=== PATIENT | male | born 1975 | race Caucasian/White ===

== ENCOUNTER 2020-12-10 10:07 | Emergency (ER) | payer BC, SELFPAY ==
--- NOTE | 2020-12-10 10:21 | ED.URI ---
HPI - URI/Sore Throat General Chief Complaint: Upper Respiratory Infection Stated Complaint: upper respiratory infection Time Seen by Provider: 12/10/20 10:20 Source: patient Mode of arrival: ambulatory Limitations: no limitations History of Present Illness HPI Narrative: Sage Sigala is a 45 yo male with a PMH of cardiomyopathy, hypertension, high cholesterol, seizure disorder, comes to [facility] with concerns about having Covid. He has vague symptoms such as congestion nausea fatigue just not feeling well x5 days His son was tested positive for Covid and his who is a nurse and who is vaccinated is taking care of him he has been living in a separate apartment with his daughter. He works for [employer] and has been complaining of fatigue for period of time Related Data Home Medications Medication Instructions Recorded Confirmed carbamazepine 200 mg PO BID 12/10/20 12/10/20 carvedilol 25 mg PO DAILY 12/10/20 12/10/20 simvastatin 40 mg PO BID 12/10/20 12/10/20 Allergies Allergy/AdvReac Type Severity Reaction Status Date / Time No Known Allergies Allergy Unverified 12/10/20 10:20 Review of Systems Review of Systems: Narrative: CONSTITUTIONAL: Denies fever, chills, sweats. EYES: Denies visual changes, redness, discharge. ENT: Denies rhinorrhea, has congestion, no sore throat, otalgia. CARDIOVASCULAR: Denies chest pain, palpitations, edema. RESPIRATORY: Denies dyspnea, wheezing, mild cough GASTROINTESTINAL: Denies abdominal pain, has nausea, no vomiting, has diarrhea. GENITOURINARY: Denies dysuria, hematuria, abnormal discharge SKIN: Denies rash or itching. NEUROLOGIC: Denies numbness, or focal weakness. PSYCHIATRIC: Denies anxiety or depression. [facility] Past Medical History Medical History (Updated 12/10/20 @ 10:49 by Leslee Pedraza CNP) Cardiomyopathy High blood pressure High cholesterol Seizure Family History Family History Other Fatigue Social History Social History Smoking status: Never smoker Alcohol intake: current Gender identity (if verbalized by the patient): Male Comments At time of signature, I agree with nursing past medical, surgical, social and family history. There is no relevant family history pertinent to the presenting complaint. Exam Narrative: Exam Narrative: GENERAL: This is a well-nourished, well-developed patient, in mild distress. HEAD: normocephalic, atraumatic. EYES: Sclera clear/white. Vision is grossly intact. EARS: External ears normal, . Hearing grossly intact. NOSE: External nose normal with nasal discharge, nares with redness, no rhinorrhea. THROAT: Mucous membranes moist, posterior pharynx erythema NECK: Neck supple, CARDIOVASCULAR: Regular rate and rhythm without murmurs, gallops, or rubs. RESPIRATORY: Clear to auscultation. Breath sounds equal bilaterally. No wheezes, rales, or rhonchi. GASTROINTESTINAL: Abdomen soft, SKIN: warm, intact with no suspicious lesions or rash, good texture and turgor. NEURO: awake, alert, and oriented to person, place and time. There were no obvious focal neurologic abnormalities. Steady gait EXTREMITIES: Normal range of motion. BACK: Nontender without deformity Course Course Emergency Course: Patient comes to express care for complaints of upper respiratory symptoms and history of Covid and household Covid test positive; started on codeine cough syrup given prescription for dexamethasone and albuterol inhaler if develops respiratory symptoms, encouraged to take Zyrtec and Mucinex Vital Signs Vital signs: Vital Signs Temperature 99 F 12/10/20 10:27 Pulse Rate 68 12/10/20 10:27 Respiratory Rate 12/10/20 10:27 Blood Pressure 126/76 12/10/20 10:27 Pulse Oximetry 98 12/10/20 10:27 Temperature 99 F 12/10/20 10:27 Pulse Rate 68 12/10/20 10:27 Respiratory Rate 20 12/10/20 10:27
[2020-12-10 10:27] VITALS: BP 126/76; PULSE 68; RESP 20; TEMP 37.2; O2SAT 98
== END 2020-12-10 11:04 | disposition home or self-care (01) ==
PROVIDERS: Emergency Provider Nurse Practitioner
DX: U07.1 COVID-19 (principal); I42.9 Cardiomyopathy, unspecified; I10 Essential (primary) hypertension; E78.00 Pure hypercholesterolemia, unspecified; G47.30 Sleep apnea, unspecified
CPT/HCPCS: 87426; 99213; C9803; G0463

== ENCOUNTER 2020-12-28 10:22 | Emergency (ER) | payer BC, SELFPAY ==
[2020-12-28 10:38] VITALS: BP 129/91; PULSE 112; RESP 20; TEMP 36.8; O2SAT 100
--- NOTE | 2020-12-28 10:47 | ED.URI ---
HPI - URI/Sore Throat General Chief Complaint: Upper Respiratory Infection Stated Complaint: upper respiratory infection Time Seen by Provider: 12/28/20 10:40 Source: patient and RN notes reviewed Mode of arrival: ambulatory Limitations: no limitations History of Present Illness HPI Narrative: 45-year-old male presents with concern for cough, nasal congestion. Reports he was diagnosed with Covid 2-1/2 weeks ago. Reports original Covid symptoms did not include nasal congestion, cough. He reports cough, mild nasal congestion, rhinorrhea. Reports has been taking Sudafed with some relief of nasal congestion. Denies any other medications for his symptoms. He denies fever, shortness of breath, body aches, chills, sweats. MD elicited complaint: rhinorrhea Related Data Home Medications Medication Instructions Recorded Confirmed carbamazepine 200 mg PO BID 12/10/20 12/28/20 carvedilol 25 mg PO DAILY 12/10/20 12/28/20 simvastatin 40 mg PO BID 12/10/20 12/28/20 Allergies Allergy/AdvReac Type Severity Reaction Status Date / Time No Known Allergies Allergy Verified 12/28/20 10:34 Review of Systems Review of Systems: Narrative: CONSTITUTIONAL: Denies malaise, chills, sweats, or fever. EYES: Denies visual changes, redness, or discharge. ENT: Reports rhinorrhea, congestion. Denies sinus pain, otalgia and sore throat. CARDIOVASCULAR: Denies chest pain, palpitations, or edema. RESPIRATORY: Reports cough. Denies dyspnea. GASTROINTESTINAL: Denies abdominal pain, nausea, vomiting, diarrhea SKIN: Denies rash or itching. MUSCULOSKELETAL: Denies myalgia. NEUROLOGIC: Denies headache. All systems reviewed & are unremarkable except as noted in HPI and below PMFSH Past Medical History Medical History (Updated 12/28/20 @ 10:49 by Ml Gambino NP) Cardiomyopathy High blood pressure High cholesterol Seizure Family History Family History Other Fatigue Social History Social History Smoking status: Never smoker Alcohol intake: current Gender identity (if verbalized by the patient): Male Comments At time of signature, agree with nursing past medical, surgical, social and family history. There is no relevant family history pertinent to the presenting complaint Exam Narrative: Exam Narrative: GENERAL: Well-appearing, well-nourished, and in no acute distress. HEAD: Normocephalic EYES: PERRLA, conjunctivae clear ENT: Nares clear, turbinates erythematous, clear discharge, no sinus tenderness. Mucous membranes moist. TM pearly aldridge with dull light reflex bilaterally; no tragal tenderness. Oropharynx not erythematous without lesions. Tonsils not enlarged and without exudate, no drooling, no hoarseness, no trismus, uvula midline. NECK: Supple. No lymphadenopathy CHEST: Clear to auscultation, breath sounds equal. No wheezing, rhonchi, rales, or stridor. No respiratory distress, speaks in full sentences. Cough noted HEART: Regular rate and rhythm. No murmur heard. SKIN: Warm, dry, no rash. NEURO: Alert and oriented x3. PSYCH: Normal mood and affect Course Course Emergency Course: Patient is aware of diagnosis, understands and agrees to treatment plan. Anticipatory guidance given. Patient agrees to follow-up as directed and is aware of reasons to seek care at the emergency department. Portions of this record may have been created with voice recognition software Vital Signs Vital signs: Vital Signs Temperature 98.3 F 12/28/20 10:38 Pulse Rate 112 H 12/28/20 10:38 Respiratory Rate 12/28/20 10:38 Blood Pressure 129/91 H 12/28/20 10:38 Pulse Oximetry 100 12/28/20 10:38 Temperature 98.3 F 12/28/20 10:38 Pulse Rate 112 H 12/28/20 10:38 Respiratory Rate 20 12/28/20 10:38 Blood Pressure 129/91 H 12/28/20 10:38 Pulse Oximetry 100 12/28/20 10:38 Reviewed. MDM - URI/Sore Throat MDM Na
== END 2020-12-28 10:58 | disposition home or self-care (01) ==
PROVIDERS: Emergency Provider Nurse Practitioner
DX: J32.9 Chronic sinusitis, unspecified (principal); J20.9 Acute bronchitis, unspecified; E78.00 Pure hypercholesterolemia, unspecified; I42.9 Cardiomyopathy, unspecified; I10 Essential (primary) hypertension; G40.909 Epilepsy, unspecified, not intractable, without status epilepticus
CPT/HCPCS: 99213; G0463

== ENCOUNTER 2021-07-12 14:25 | Outpatient (CLI) | payer OTHER, SELFPAY ==
[2021-07-12 18:48] LABS: Free T4 Free Thyroxine 0.73 ng/mL (0.78-2.19)
== END 2021-07-12 14:26 | disposition home or self-care (01) ==
PROVIDERS: Visit Provider Internal Medicine Pulmonary Disease
DX: Z76.89 Persons encountering health services in other specified circumstances (principal)
CPT/HCPCS: 36415; 84439; 84443

== ENCOUNTER 2021-08-11 07:46 | Outpatient (CLI) | payer OTHER, SELFPAY ==
--- NOTE | 2021-08-24 13:08 | WPDSLEEPSTUD ---
Sleep Study Date of Study: 08/11/21 <Deanna Cade DO - Last Filed: 08/24/21 13:41> Ordering Provider: Aayush Uribe MD <Deanna Cade DO - Last Filed: 08/24/21 13:41> Interpreting Physician: Deanna Cade DO <Deanna Cade DO - Last Filed: 08/24/21 13:41> Sleep Study Type: Polysomnogram <Deanna Cade DO - Last Filed: 08/24/21 13:41> Height: 1.83 m <Deanna Cade DO - Last Filed: 08/24/21 13:41> Weight: 95.254 kg <Deanna Cade DO - Last Filed: 08/24/21 13:41> Body Mass Index: 28.5 <Deanna Cade DO - Last Filed: 08/24/21 13:41> Neck Circumference (inches): 17 <Deanna Cade DO - Last Filed: 08/24/21 13:41> [place]: 19 <Deanna Cade DO - Last Filed: 08/24/21 13:41> Reason for Sleep Study Snoring, unrefreshing sleep, daytime hypersomnia, frequent urination, waking up gasping for air throughout the night <Deanna Cade DO - Last Filed: 08/24/21 13:41> Sleep History The patient is a 45-year-old male with hypertension, hyperlipidemia, seizure disorder (last seizure in 2008 ), and cardiomyopathy and had a sleep study ordered by Dr. Uribe for unrefreshing sleep, daytime sleepiness frequent urination throughout the night. The patient has the symptoms almost every night and that has been going on for the past 3 months. The patient does have a brother who has sleep apnea. The patient states that he frequently awakens at night with heartburn, belching or cough. He often snores loudly so that others complain. He frequently has trouble sleeping when he has a cold. He often wakes up gasping for air throughout the night. He often has breathing problems at night Fedder observed by others. She denies any heart palpitations at night. He frequently falls asleep during the day but never while driving. He often has trouble at work due to sleepiness. He denies sleep paralysis and cataplexy. He often experiences vivid dreamlike scenes upon awakening or falling asleep. He he rarely has nightmares. He often feels sad, depressed and anxious. He often notices parts of his body jerk. He rarely kicks throughout the night. He denies any crawling and aching feelings in his legs as well as leg pain. She rarely guards his teeth while sleeping and denies morning jaw pain. She rarely is bothered by pain throughout the day and is rarely awakened by pain throughout the night. He often wakes up with sore or achy muscles. The patient goes to bed at 10:00 p.m. on the weekdays and 11:00 p.m. on the weekends. It takes him about 15 minutes to fall asleep. He usually gets 6-8 hours of sleep per night. He wakes up at least 5 times throughout the night to urinate. He usually falls back asleep within 1-5 minutes. He wakes up at 5:45 a.m. on weekdays and 7:30 a.m. on the weekends. He usually stays in bed for 20 minutes after waking up in the morning. He currently lives with his and children. He denies consuming any caffeinated beverages 2 hours prior to bedtime. He does not engage in physical exercise before bedtime. He will watch television before falling asleep. He will take naps during the afternoon but they are not refreshing. He denies go, alcohol and recreational drug use. He does consume 2 caffeinated sodas daily. <Deanna Cade DO - Last Filed: 08/24/21 13:41> [facility] Past Medical History Medical History: Medical History Cardiomyopathy High blood pressure High cholesterol Seizure <Deanna Cade DO - Last Filed: 08/24/21 13:41> Family History Family History: Family History Other Fatigue <Deanna Cade DO - Last Filed: 08/24/21 13:41> Social History Social History: Social History Smoking s
[2021-08-24 13:12] VITALS: BMI 28.5
== END 2021-08-12 07:13 | disposition home or self-care (01) ==
LOC: ANHCSM 07:48
PROVIDERS: Visit Provider Internal Medicine Pulmonary Disease
DX: G47.33 Obstructive sleep apnea (adult) (pediatric) (principal)
CPT/HCPCS: 95810

== ENCOUNTER 2021-08-19 11:55 | Emergency (ER) | payer OTHER, BC, SELFPAY ==
--- NOTE | ~2021-08-19 | XR_ITS ---
EXAMINATION: XR wrist LT min 3V DATE: 08/19/2021 13:49 INDICATION: Left wrist pain post injury TECHNIQUE: Posteroanterior, ulnar deviation, oblique, and lateral views of the left wrist were obtain ed. COMPARISON: none FINDINGS: Alignment is normal. No fracture. Joint spaces are normal. Soft tissues are unremarkable. IMPRESSION: 1. Negative left wrist radiographs. Reviewed, dictated and finalized at location B.
--- NOTE | ~2021-08-19 | XR_ITS ---
EXAMINATION: XR lumbar spine min 4V EXAM DATE: 08/19/2021 13:49 INDICATION: Low back pain after injury. TECHNIQUE: Lumber spine frontal, lateral, bilateral oblique projections. Coned down frontal and lat eral L5-S1 lumbar projections for interpretation. There is no prior study for comparison. FINDINGS: There is no spondylolysis. There is mild lumbar facet arthropathy. The vertebral bodies are aligned in the AP dimension. Vertebral body and disc heights are well-maintained. There are no acute fractures identified. Sacrum, sacroiliac joints, sacral arcuate lines are intact. Paraspinal soft ti ssue is unremarkable. IMPRESSION: Mild facet arthropathy. No acute findings. Reviewed, dictated and finalized at location G.
--- NOTE | ~2021-08-19 | XR_ITS ---
EXAMINATION: XR shoulder LT min 2V EXAM DATE: 08/19/2021 13:48 INDICATION: Initial encounter following injury, with pain of the left shoulder. TECHNIQUE: The following left shoulder projections obtained: frontal projection with internal rotatio n, frontal projection with external rotation, Grashey, and scapular Y view (4+ views). There is no p rior study for comparison. FINDINGS: No evidence of left shoulder rotator cuff calcific tendinosis. Unremarkable left glenoh umeral and acromioclavicular joints. There are no acute fractures or dislocations identified. There is no subcutaneous gas. The soft tissue is unremarkable. There are no radiopaque foreign bodies. L eft upper lobe calcified granuloma. IMPRESSION: 1. XR shoulder LT min 2V exam without acute osseous findings. Reviewed, dictated and finalized at location .
[2021-08-19 12:39] VITALS: BP 136/88; PULSE 64; RESP 16; TEMP 36.8; O2SAT 100
--- NOTE | 2021-08-19 14:32 | ED.GENADULT ---
HPI - General Adult General Chief complaint: Back Pain/Injury Stated complaint: back pain Time Seen by Provider: 08/19/21 12:28 Source: patient Mode of arrival: ambulatory Limitations: no limitations History of Present Illness HPI narrative: Patient presents for evaluation of left wrist left shoulder and low back after slipping while on a ladder in patient himself with his left hand. Patient states that his body did a twisting rotation. He now experiences pain across his low back especially to the right side. Patient also reports some discomfort with range of motion in his shoulder and his wrist. He denies loss of range of motion. He denies loss of bowel or bladder function or saddle paresthesias. Patient denies any head impact or head injury. Patient denies any other areas of pain or discomfort. Related Data Home Medications Medication Instructions Recorded Confirmed carbamazepine 200 mg PO BID 12/10/20 07/12/21 carvedilol 25 mg PO DAILY 12/10/20 07/12/21 simvastatin 40 mg PO BID 12/10/20 07/12/21 losartan 50 mg tablet 50 mg PO DAILY 07/12/21 07/12/21 Allergies Allergy/AdvReac Type Severity Reaction Status Date / Time No Known Allergies Allergy Verified 08/19/21 12:47 Review of Systems Review of Systems: CONSTITUTIONAL: Denies fever, chills, or sweats. EYES: Denies visual changes, redness, or discharge. ENT: Denies rhinorrhea, congestion, sore throat, or otalgia. CARDIOVASCULAR: Denies chest pain, palpitations, or edema. RESPIRATORY: Denies cough or dyspnea. GASTROINTESTINAL: Denies abdominal pain, nausea, vomiting, or diarrhea. GENITOURINARY: Denies dysuria or hematuria. SKIN: Denies rash or itching. MUSCULOSKELETAL: Reports back pain, left shoulder and left wrist pain NEUROLOGIC: Denies headache, numbness, dizziness, or weakness. PSYCHIATRIC: Denies anxiety or depression. [facility] Past Medical History Medical History Cardiomyopathy High blood pressure High cholesterol Seizure Family History Family History Other Fatigue Social History Social History Smoking status: Never smoker Alcohol intake: current Gender identity (if verbalized by the patient): Male Exam Narrative: GENERAL: Well-appearing, well-nourished, and in no acute distress. HEAD: Normocephalic, atraumatic. EYES: PERRLA and EOMI. CHEST: Clear to auscultation. No respiratory distress. No wheezes rales or rhonchi HEART: Regular rate and rhythm. No murmur heard. Normal peripheral pulses. BACK: Tenderness with palpation of the lumbar region worse on right. EXTREMITIES: Normal range of motion. No edema. Some discomfort with abduction, internal, and external rotation. 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 SKIN: Warm, dry, no rash. No outward signs of injury or abrasions. NEURO: No focal deficits. Alert and oriented x3. PSYCH: Normal mood and affect. Course Vital Signs Vital signs: Vital Signs Temperature 98.2 F 08/19/21 12:39 Pulse Rate 64 08/19/21 12:39 Respiratory Rate 16 08/19/21 12:39 Blood Pressure 136/88 08/19/21 12:39 Pulse Oximetry 100 08/19/21 12:39 Temperature 98.2 F 08/19/21 12:39 Pulse Rate 64 08/19/21 12:39 Respiratory Rate 16 08/19/21 12:39 Blood Pressure 136/88 08/19/21 12:39 Pulse Oximetry 100 08/19/21 12:39 Medical Decision Making MDM Narrative Medical decision making narrative: Discussed with patient RICE instructions. Discussed with him the need to follow-up with primary care for further evaluation and management if symptoms persist. Discussed that his injuries are likely muscle, tendon or ligamentous injury. Vital Signs Vital Signs: Vital Signs Temperature 98.2 F 08/19/21 12:39 Pulse Rate 64 08/19/21 12:39 Respiratory Rate 16 08/19/21 12:39 Blood Pressure 136/88 08/19/21 12:39 Pulse Oximetry 100
[2021-08-19] MEDS: KETOROLAC 30 MG/ML VIAL (*BKC) IM (15:01)
[2021-08-19 15:03] VITALS: BP 130/76; PULSE 70; RESP 16; O2SAT 97
== END 2021-08-19 15:03 | disposition home or self-care (01) ==
PROVIDERS: Emergency Provider Family Medicine
DX: S39.012A Strain of muscle, fascia and tendon of lower back, initial encounter (principal); S46.912A Strain of unspecified muscle, fascia and tendon at shoulder and upper arm level, left arm, initial encounter; S66.912A Strain of unspecified muscle, fascia and tendon at wrist and hand level, left hand, initial encounter; W11.XXXA Fall on and from ladder, initial encounter
CPT/HCPCS: 72110; 73030; 73110; 96372; 99284; J1885

== ENCOUNTER 2021-11-19 12:00 | Emergency (ER) | payer OTHER, SELFPAY ==
[2021-11-19 13:36] VITALS: BP 120/82; PULSE 75; RESP 18; TEMP 37.3; O2SAT 99
--- NOTE | 2021-11-19 14:32 | ED.URI ---
HPI - URI/Sore Throat General Chief Complaint: Upper Respiratory Infection Stated Complaint: headache,sorethroat,bodyache Time Seen by Provider: 11/19/21 14:33 Source: patient, RN notes reviewed and old records reviewed Mode of arrival: ambulatory Limitations: no limitations History of Present Illness HPI Narrative: 46-year-old male who presents to [facility] with complaints of 3 to 4-day history of sinus drainage, headache. cough. body aches, sinus pressure, sore throat with some nausea, no vomiting ordiarrhea. Patient states he has had Covid last year in December 2020 has had Covid vaccine no booster and has had flu shot. Patient states that he has office contacts who have been ill also but they have not been checked for COVID. MD elicited complaint: cough, sore throat and other (Body aches) Related Data Home Medications Medication Instructions Recorded Confirmed carbamazepine 200 mg PO BID 12/10/20 11/19/21 carvedilol 25 mg PO DAILY 12/10/20 11/19/21 simvastatin 40 mg PO BID 12/10/20 11/19/21 losartan 50 mg tablet 50 mg PO DAILY 07/12/21 11/19/21 Allergies Allergy/AdvReac Type Severity Reaction Status Date / Time No Known Allergies Allergy Verified 08/19/21 12:47 Review of Systems Review of Systems: CONSTITUTIONAL: Low grade fever, chills, or sweats. EYES: Denies visual changes, redness, or discharge. ENT: Positive rhinorrhea, congestion, sore throat, no otalgia. CARDIOVASCULAR: Denies chest pain, palpitations, or edema. RESPIRATORY: Positive cough no dyspnea. GASTROINTESTINAL: Denies abdominal pain,positive for nausea, no vomiting, or diarrhea. GENITOURINARY: Denies dysuria or hematuria. SKIN: Denies rash or itching. MUSCULOSKELETAL: Denies back pain, joint pain,positive for body aches NEUROLOGIC: Positive for headache,no numbness, or weakness. PSYCHIATRIC: Denies anxiety or depression. All systems reviewed & are unremarkable except as noted in HPI and below PMFSH Past Medical History Medical History Cardiomyopathy High blood pressure High cholesterol Seizure Family History Family History (Updated 11/19/21 @ 23:33 by Bisi Santamaria NP) Father Heart disease Acute myocardial infarction Hypertension Mother Heart disease Acute myocardial infarction Hypertension Social History Social History (Updated 11/19/21 @ 23:31 by Bisi Santamaria NP) Smoking status: Never smoker Alcohol intake: current Alcohol use details: rare social Substance use: never Living arrangements: with family Additional occupation/education comments: Gender identity (if verbalized by the patient): Male Comments At time of signature, agree with nursing past medical, surgical, social and family history. There is no relevant family history pertinent to the presenting complaint Exam Narrative: GENERAL:ill-appearing, well-nourished, and in no acute distress. HEAD: Normocephalic, atraumatic. EYES: PERRLA and EOMI. ENT: Nares red with clear rhinorrhea no epistaxis. Mucous membranes moist.TM's normal with good light reflex throat red with no lesions or exudates no tonsil swelling post nasal drainage. NECK: Supple.no lymphadenopathy CHEST: Clear to auscultation. No respiratory distress.cough noted with SAO2 99% on room air HEART: Regular rate and rhythm. No murmur heard. Normal peripheral pulses. ABDOMEN: Soft, nontender, nondistended, normal active bowel sounds. EXTREMITIES: Normal range of motion. No edema. SKIN: Warm, dry, no rash. NEURO: No focal deficits. Alert and oriented x3. Course Course Level of Care: Express Care Visit Vital Signs Vital signs: Vital Signs Temperature 37.3 C 11/19/21 13:36 Pulse Rate 75 11/19/21 13:36 Respiratory Rate 18 11/19/21 13:36 Blood Pressure 120/82 11/19/21 13:36 Pulse Oximetry 99 11/19/21 13:36 Temperature 37.3 C 11/19/21 13:36 Pulse Rate 75 11/19/21 13:36 Respiratory R
[2021-11-21 16:23] LABS: SARS-CoV-2 RNA PCR Positive
--- NOTE | 2021-11-22 16:45 | PC.NURSE ---
patient was informed of his positive COVID test
== END 2021-11-19 15:11 | disposition home or self-care (01) ==
PROVIDERS: Emergency Provider Registered Nurse
DX: J06.9 Acute upper respiratory infection, unspecified (principal); Z20.822 Contact with and (suspected) exposure to COVID-19; I10 Essential (primary) hypertension; E78.00 Pure hypercholesterolemia, unspecified; G40.909 Epilepsy, unspecified, not intractable, without status epilepticus
CPT/HCPCS: 87426; 87804; 99213; C9803; G0463; U0003; U0005

== ENCOUNTER 2022-04-07 17:20 | Emergency (ER) | payer OTHER, SELFPAY ==
[2022-04-07 17:34] VITALS: BP 131/71; PULSE 56; RESP 16; TEMP 36.4; O2SAT 100
--- NOTE | 2022-04-07 17:50 | ED.URI ---
HPI - URI/Sore Throat General Chief Complaint: Upper Respiratory Infection Stated Complaint: Congestion,Headache Time Seen by Provider: 04/07/22 17:51 Source: patient Mode of arrival: ambulatory Limitations: no limitations History of Present Illness HPI Narrative: 46-year-old male who presents to [facility] care with complaints of sinus congestion,sinus pain, runny nose for at least a week and then for the past 2-3 days he has also had a sore throat and he has developed a productive cough. Patient denies any shortness of breath , no nausea or vomiting or acute fevers.Patient reports that his throat is very sore today and rates his pain 8/10. Patient has been COVID vaccinated and has had flu hot and patient, has had COVID twice. MD elicited complaint: sore throat, rhinorrhea, nasal congestion, sinus pain and other (headache) Onset (ago): week(s) (1) Consistency: progressively worsening Severity: severe Pain scale (0-10): 8 Able to tolerate fluids by mouth: Yes Related Data Home Medications Medication Instructions Recorded Confirmed carbamazepine 200 mg tablet 200 mg PO BID 12/10/20 04/07/22 carvedilol 25 mg tablet 25 mg PO DAILY 12/10/20 04/07/22 simvastatin 40 mg tablet 40 mg PO BID 12/10/20 04/07/22 losartan 50 mg tablet 50 mg PO DAILY 07/12/21 04/07/22 Allergies Allergy/AdvReac Type Severity Reaction Status Date / Time No Known Allergies Allergy Verified 04/07/22 17:34 Review of Systems Review of Systems: CONSTITUTIONAL: Denies fever, chills, or sweats. EYES: Denies visual changes, redness, or discharge. ENT: Positive rhinorrhea, congestion, sore throat, no otalgia, sinus pressure CARDIOVASCULAR: Denies chest pain, palpitations, or edema. RESPIRATORY: Positive cough no dyspnea. GASTROINTESTINAL: Denies abdominal pain, nausea, vomiting, or diarrhea. GENITOURINARY: Denies dysuria or hematuria. SKIN: Denies rash or itching. MUSCULOSKELETAL: Denies back pain, joint pain, or myalgia. NEUROLOGIC: Positive for ankle headache, numbness, or weakness. PSYCHIATRIC: Denies anxiety or depression. [facility] Past Medical History Medical History (Updated 04/07/22 @ 18:54 by Bisi L. Hina, STAFFING RECRUITER) Cardiomyopathy COVID-01 January 2021, November 2021 High blood pressure High cholesterol JASSON (obstructive sleep apnea) Seizure Family History Family History Father Heart disease Acute myocardial infarction Hypertension Mother Heart disease Acute myocardial infarction Hypertension Social History Social History Smoking status: Never smoker Alcohol intake: current Alcohol use details: rare social Substance use: never Additional occupation/education comments: Gender identity (if verbalized by the patient): Male Comments At time of signature, agree with nursing past medical, surgical, social and family history. There is no relevant family history pertinent to the presenting complaint Exam Narrative: GENERAL: Well-appearing, well-nourished, and in no acute distress. HEAD: Normocephalic, atraumatic. EYES: PERRLA and EOMI. ENT: Nares red with membranes red and swollen, yellow tinged rhinorrhea no epistaxis. Mucous membranes moist.TM's normal with good light reflex, throat red with no lesions or exudates no tonsil swelling, post nasal drainage present.facial sinus pressure and frontal headache. NECK: Supple.no lymphadenopathy CHEST: Clear to auscultation. No respiratory distress.cough noted no tachypnea noted SAO2 100% on room air. HEART: Regular rate and rhythm. No murmur heard. Normal peripheral pulses. ABDOMEN: Soft, nontender, nondistended, normal active bowel sounds. EXTREMITIES: Normal range of motion. No edema. SKIN: Warm, dry, no rash. NEURO: No focal deficits. Alert and oriented x3. Course Course Level of Care: Express Care Visit Vital Signs Vital signs: Vital Signs Temperature 36.
== END 2022-04-07 18:04 | disposition home or self-care (01) ==
PROVIDERS: Emergency Provider Registered Nurse
DX: J01.90 Acute sinusitis, unspecified (principal); E78.00 Pure hypercholesterolemia, unspecified; I10 Essential (primary) hypertension; G47.33 Obstructive sleep apnea (adult) (pediatric); I42.9 Cardiomyopathy, unspecified; G40.909 Epilepsy, unspecified, not intractable, without status epilepticus; Z86.16 Personal history of COVID-19
CPT/HCPCS: 99213; G0463

== ENCOUNTER 2022-08-24 00:38 | Day surgery (SDC) | payer OTHER, SELFPAY ==
[2022-08-10 12:57] VITALS: BMI 27.8
[2022-08-24 06:47] VITALS: BP 130/91; PULSE 72; RESP 20; TEMP 36; O2SAT 97; BMI 27.7
[2022-08-24] MEDS: LACTATED RINGERS 1,000 ML 150 ML IV CONT (06:58)
--- NOTE | 2022-08-24 07:54 | PM.HPGS ---
History of Present Illness History of Present Illness Consent: Risks, benefits, and alternatives have been discussed and questions answered. Patient agrees to proceed with procedure. Chief complaint: IBS diarrhea, GERD Narrative: Sage Sigala is a 46 year old male with gerd recently started on ppi, also ibs-d, never had scopes Review of Systems Constitutional: Constitutional: Denies headache(s) and Denies weakness Eyes: Eyes: Denies blurry vision ENT: Reports Normal hearing present, Denies headache(s) and Denies neck pain Cardiovascular: Cardiovascular: Denies chest pain and Denies dyspnea Respiratory: Respiratory: Denies dyspnea Gastrointestinal: Gastrointestinal: Reports no additional gastrointestinal complaints Genitourinary: Genitourinary: Denies dysuria Musculoskeletal: Musculoskeletal: Denies neck pain Integumentary/Breasts: Skin/Breast: Denies dry skin Neurologic: Reports Normal hearing present, Denies headache(s) and Denies weakness Psychiatric: Psychiatric: Denies anxiety Endocrine: Endocrine: Denies change in body appearance Hematologic/Lymphatic: Hematologic/Lymphatic: Denies easy bleeding Allergic/Immunologic: Allergic/Immunologic: Denies urticaria PMF Past Medical History Medical History (Updated 08/24/22 @ 07:55 by Dudley Murcia MD) Cardiomyopathy Colon cancer screening COVID-01 January 2021, November 2021 GERD (gastroesophageal reflux disease) High blood pressure High cholesterol Irritable bowel syndrome with diarrhea Obesity JASSON (obstructive sleep apnea) Seizure Family History Family History Father Heart disease Acute myocardial infarction Hypertension Mother Heart disease Acute myocardial infarction Hypertension Social History Social History Smoking status: Never smoker Alcohol intake: current Alcohol use details: rare social Substance use: never Living arrangements: with family Additional occupation/education comments: Gender identity (if verbalized by the patient): Male Meds Home Medications and Allergies Home Medications Medication Instructions Recorded Confirmed Type carbamazepine 200 mg tablet 200 mg PO BID 12/10/20 08/10/22 History carvedilol 25 mg tablet 25 mg PO DAILY 12/10/20 08/10/22 History simvastatin 40 mg tablet 40 mg PO BID 12/10/20 08/10/22 History losartan 50 mg tablet 50 mg PO DAILY 07/12/21 08/10/22 History melatonin 10 mg capsule 10 mg PO QHS sleep maintenance 07/05/22 08/10/22 Rx insomnia #30 caps sertraline 25 mg tablet (Zoloft) 25 mg PO DAILY 07/05/22 08/10/22 History dicyclomine 20 mg tablet 20 mg PO QID #120 tabs 07/14/22 08/10/22 Rx pantoprazole 40 mg tablet,delayed 40 mg PO QAM 07/14/22 08/10/22 History release (Protonix) Allergies Allergy/AdvReac Type Severity Reaction Status Date / Time No Known Allergies Allergy Verified 08/24/22 06:46 Vital Signs Vital Signs - 24 hr 08/24/22 06:47 Temperature 96.8 F L Pulse Rate 72 Respiratory Rate 20 Blood Pressure 130/91 H Pulse Oximetry 97 Oxygen Delivery Room Air Exam Const: General: comfortable and no acute distress HENMT: Face/Nose/Sinus: Normal nares present Eyes: General: appearance normal, both eyes and all related structures Neck: Neck: no JVD Resp: Auscultation: clear to auscultation bilaterally Cardio: Rate: regular rate Rhythm: regular rhythm GI: Inspection: non-distended GI Palp: Yes Soft to palpation Skin: General skin exam: normal color Neuro: General: gait normal Speech: normal speech Extrem: General: normal to inspection Psych: Mental Status: mental status grossly normal Assessment and Plan Assessment and plan (1) GERD (gastroesophageal reflux disease): Code(s): K21.9 - Gastro-esophageal reflux disease without esophagitis Status: Acute Ass
--- NOTE | 2022-08-24 08:13 | SUR.OPER ---
EGD start 804 end 808, Colonoscopy start 813 end 822
[2022-08-24 08:27] VITALS: BP 111/72; PULSE 66; RESP 18; O2SAT 98
[2022-08-24 08:37] VITALS: BP 102/74; PULSE 63; RESP 17; O2SAT 97
[2022-08-24 08:47] VITALS: BP 116/76; PULSE 57; RESP 16; O2SAT 99
== END 2022-08-24 08:54 | disposition home or self-care (01) ==
PROVIDERS: Visit Provider Internal Medicine Gastroenterology
PROC: 0DJ08ZZ Inspection of Upper Intestinal Tract, Via Natural or Artificial Opening Endoscopic (ICD-10-PCS; CPT 43235; principal; 2022-08-24 08:00)
DX: K58.0 Irritable bowel syndrome with diarrhea (principal); B96.81 Helicobacter pylori [H. pylori] as the cause of diseases classified elsewhere; D12.5 Benign neoplasm of sigmoid colon; K21.9 Gastro-esophageal reflux disease without esophagitis; I10 Essential (primary) hypertension; E78.00 Pure hypercholesterolemia, unspecified; G47.33 Obstructive sleep apnea (adult) (pediatric); Z86.16 Personal history of COVID-19; K64.8 Other hemorrhoids
CPT/HCPCS: 45385; 45380; 43239; 88305; J2704; J7120

== ENCOUNTER 2022-11-01 13:02 | Emergency (ER) | payer OTHER, SELFPAY ==
[2022-11-01 13:25] VITALS: BP 132/81; PULSE 60; RESP 18; TEMP 36.3; O2SAT 99
--- NOTE | 2022-11-01 14:03 | ED.URI ---
HPI - URI/Sore Throat General Chief Complaint: Upper Respiratory Infection Stated Complaint: congestion Time Seen by Provider: 11/01/22 14:03 Source: patient and RN notes reviewed Mode of arrival: ambulatory Limitations: no limitations History of Present Illness HPI Narrative: 47 y/o male presented for c/o sinus pressure congestion and cough for 2 weeks. States symptoms worsened last night. denies associated shortness of breath, wheezing, nausea, vomiting, diarrhea, fevers or chills. He has taken [id number] medication without relief in symptoms. MD elicited complaint: cough Related Data Home Medications Medication Instructions Recorded Confirmed carvedilol 25 mg tablet 25 mg PO DAILY 12/10/20 11/01/22 simvastatin 40 mg tablet 40 mg PO BID 12/10/20 11/01/22 losartan 50 mg tablet 50 mg PO DAILY 07/12/21 11/01/22 sertraline 25 mg tablet (Zoloft) 25 mg PO DAILY 07/05/22 11/01/22 pantoprazole 40 mg tablet,delayed 40 mg PO QAM 07/14/22 11/01/22 release (Protonix) gabapentin 600 mg tablet 600 mg PO DAILY 10/11/22 11/01/22 naproxen 375 mg tablet,delayed 375 mg PO BID 10/11/22 11/01/22 release Allergies Allergy/AdvReac Type Severity Reaction Status Date / Time No Known Allergies Allergy Verified 11/01/22 13:21 Review of Systems Review of Systems: ROS per HPI PMFSH Past Medical History Medical History Cardiomyopathy Colon cancer screening COVID-01 January 2021, November 2021 GERD (gastroesophageal reflux disease) High blood pressure High cholesterol Irritable bowel syndrome with diarrhea Obesity JASSON (obstructive sleep apnea) Seizure Family History Family History Father Heart disease Acute myocardial infarction Hypertension Mother Heart disease Acute myocardial infarction Hypertension Social History Social History Smoking status: Never smoker Alcohol intake: current Alcohol use details: rare social Substance use: never Additional occupation/education comments: Gender identity (if verbalized by the patient): Male Exam Narrative: GENERAL: Ill-appearing, nontoxic EYES: PERRLA, conjunctivae clear ENT: Mucous membranes moist. TMs pearly aldridge with dull light reflex bilaterally; no tragal tenderness. Oropharynx without lesions or exudate, no drooling, no hoarseness, no trismus, uvula midline. CHEST: Clear to auscultation, breath sounds equal. No wheezing, rhonchi, rales, or stridor. HEART: Regular rate and rhythm. No murmur heard. SKIN: Warm, dry, no rash. NEURO: Alert and oriented x3. PSYCH: Normal mood and affect Course Course Emergency Course: Patient is aware of diagnosis, understands and agrees to treatment plan. Anticipatory guidance given. Patient agrees to follow-up as directed and is aware of reasons to seek care at the emergency department. Portions of this record may have been created with voice recognition software Level of Care: Express Care Visit Vital Signs Vital signs: Vital Signs Temperature 97.3 F L 11/01/22 13:25 Pulse Rate 60 11/01/22 13:25 Respiratory Rate 18 11/01/22 13:25 Blood Pressure 132/81 11/01/22 13:25 Pulse Oximetry 99 11/01/22 13:25 Oxygen Delivery Room Air 11/01/22 13:25 Temperature 97.3 F L 11/01/22 13:25 Pulse Rate 60 11/01/22 13:25 Respiratory Rate 18 11/01/22 13:25 Blood Pressure 132/81 11/01/22 13:25 Pulse Oximetry 99 11/01/22 13:25 Oxygen Delivery Room Air 11/01/22 13:25 reviewed MDM - URI/Sore Throat MDM Narrative Medical decision making narrative: Advised supportive measures and signs/symptoms to go to the ER. Pt is appropriate for outpt treatment and f/u. Differential Diagnosis Differential diagnosis: Likely upper respiratory infection, sinusitis and viral infection Discharge Plan Discharge
== END 2022-11-01 14:13 | disposition home or self-care (01) ==
PROVIDERS: Emergency Provider Nurse Practitioner Family
DX: J32.9 Chronic sinusitis, unspecified (principal); Z79.1 Long term (current) use of non-steroidal anti-inflammatories (NSAID); Z20.822 Contact with and (suspected) exposure to COVID-19
CPT/HCPCS: 87426; 99213; C9803; G0463

== ENCOUNTER 2022-11-16 16:31 | Emergency (ER) | payer OTHER, SELFPAY ==
[2022-11-16 16:39] VITALS: BP 144/78; PULSE 61; RESP 16; TEMP 36.1; O2SAT 100
--- NOTE | 2022-11-16 16:43 | ED.EAR ---
HPI - Ear Problem General Chief complaint: Ear Stated complaint: Rt Ear Irritation Time Seen by Provider: 11/16/22 16:43 Source: patient and RN notes reviewed Mode of arrival: ambulatory Limitations: no limitations History of Present Illness HPI Narrative: 47-year-old male presents with concern for right ear pain. Reports he recently had a sinus infection that improved with treatment, however ear pain started shortly after. He denies drainage from the ear. Reports pain and pressure MD Complaint: ear pain Related Data Home Medications Medication Instructions Recorded Confirmed carvedilol 25 mg tablet 25 mg PO DAILY 12/10/20 11/16/22 simvastatin 40 mg tablet 40 mg PO BID 12/10/20 11/16/22 losartan 50 mg tablet 50 mg PO DAILY 07/12/21 11/16/22 sertraline 25 mg tablet (Zoloft) 25 mg PO DAILY 07/05/22 11/16/22 pantoprazole 40 mg tablet,delayed 40 mg PO QAM 07/14/22 11/16/22 release (Protonix) gabapentin 600 mg tablet 600 mg PO DAILY 10/11/22 11/16/22 naproxen 375 mg tablet,delayed 375 mg PO BID 10/11/22 11/16/22 release Allergies Allergy/AdvReac Type Severity Reaction Status Date / Time No Known Allergies Allergy Verified 11/16/22 16:34 Review of Systems Review of Systems: CONSTITUTIONAL: Denies malaise, chills, sweats, or fever. EYES: Denies visual changes, redness, or discharge. ENT: Denies rhinorrhea, congestion, sinus pain, and sore throat. Reports right ear pain CARDIOVASCULAR: Denies chest pain, palpitations, or edema. RESPIRATORY: Denies cough. Denies dyspnea. GASTROINTESTINAL: Denies abdominal pain, nausea, vomiting, diarrhea SKIN: Denies rash or itching. MUSCULOSKELETAL: Denies myalgia. NEUROLOGIC: Denies headache. All systems reviewed & are unremarkable except as noted in HPI and below PMFSH Past Medical History Medical History Cardiomyopathy Colon cancer screening COVID-01 January 2021, November 2021 GERD (gastroesophageal reflux disease) High blood pressure High cholesterol Irritable bowel syndrome with diarrhea Obesity JASSON (obstructive sleep apnea) Seizure Family History Family History Father Heart disease Acute myocardial infarction Hypertension Mother Heart disease Acute myocardial infarction Hypertension Social History Social History Smoking status: Never smoker Alcohol intake: current Alcohol use details: rare social Substance use: never Additional occupation/education comments: Gender identity (if verbalized by the patient): Male Comments At time of signature, agree with nursing past medical, surgical, social and family history. There is no relevant family history pertinent to the presenting complaint Exam Narrative: GENERAL: Well-appearing, well-nourished, and in no acute distress. HEAD: Normocephalic EYES: PERRLA, conjunctivae clear ENT: Nares clear. Mucous membranes moist. TM pearly aldridge with dull light reflex on the right, sharp on the left; no tragal tenderness. Oropharynx not erythematous without lesions. Tonsils not enlarged and without exudate, no drooling, no hoarseness, no trismus, uvula midline. NECK: Supple. No lymphadenopathy CHEST: Clear to auscultation, breath sounds equal. No wheezing, rhonchi, rales, or stridor. No respiratory distress, speaks in full sentences. HEART: Regular rate and rhythm. No murmur heard. SKIN: Warm, dry, no rash. NEURO: Alert and oriented x3. PSYCH: Normal mood and affect Course Course Emergency Course: Patient is aware of diagnosis, understands and agrees to treatment plan. Anticipatory guidance given. Patient agrees to follow-up as directed and is aware of reasons to seek care at the emergency department. Portions of this record may have been created with voice recognition software Level of Care: Express Care Visit Vital Signs Juliette
== END 2022-11-16 16:58 | disposition home or self-care (01) ==
PROVIDERS: Emergency Provider Nurse Practitioner
DX: H69.91 Unspecified Eustachian tube disorder, right ear (principal); I42.9 Cardiomyopathy, unspecified; K21.9 Gastro-esophageal reflux disease without esophagitis; I10 Essential (primary) hypertension; E78.00 Pure hypercholesterolemia, unspecified; E66.9 Obesity, unspecified; Z68.28 Body mass index [BMI] 28.0-28.9, adult; G40.909 Epilepsy, unspecified, not intractable, without status epilepticus; Z86.16 Personal history of COVID-19
CPT/HCPCS: 99213; G0463

== ENCOUNTER 2023-02-17 11:08 | Emergency (ER) | payer OTHER, SELFPAY ==
--- NOTE | 2023-02-17 11:09 | ED.EAR ---
HPI - Ear Problem General Chief complaint: Ear Stated complaint: Rt Ear Irritation Time Seen by Provider: 02/17/23 11:40 Source: patient and RN notes reviewed Mode of arrival: ambulatory Limitations: no limitations History of Present Illness HPI Narrative: 47-year-old male presents concern for right ear pain. Reports he has been having ear pain for quite some time, worse in the last week. He reports he has chronic sinus problems for which he seen in ENT use waiting on CT results. He reports he takes daily Flonase and Sudafed and and not helping his ear pain. He denies drainage from the ear hearing problems MD Complaint: ear pain Related Data Home Medications Medication Instructions Recorded Confirmed carvedilol 25 mg tablet 25 mg PO DAILY 12/10/20 02/17/23 simvastatin 40 mg tablet 40 mg PO BID 12/10/20 02/17/23 losartan 50 mg tablet 50 mg PO DAILY 07/12/21 02/17/23 sertraline 25 mg tablet (Zoloft) 25 mg PO DAILY 07/05/22 02/17/23 pantoprazole 40 mg tablet,delayed 40 mg PO QAM 07/14/22 02/17/23 release (Protonix) gabapentin 600 mg tablet 600 mg PO DAILY 10/11/22 02/17/23 naproxen 375 mg tablet,delayed 375 mg PO BID 10/11/22 02/17/23 release bupropion HCl 300 mg 24 hr tablet, 300 mg PO DAILY 02/14/23 02/17/23 extended release (Wellbutrin XL) dicyclomine 20 mg tablet 20 mg PO QID 02/14/23 02/17/23 Allergies Allergy/AdvReac Type Severity Reaction Status Date / Time No Known Allergies Allergy Verified 02/17/23 11:20 Review of Systems Review of Systems: CONSTITUTIONAL: Denies malaise, chills, sweats, or fever. EYES: Denies visual changes, redness, or discharge. ENT: Reports rhinorrhea, congestion. Denies sinus pain, and sore throat. Reports right ear pain CARDIOVASCULAR: Denies chest pain, palpitations, or edema. RESPIRATORY: Denies cough. Denies dyspnea. GASTROINTESTINAL: Denies abdominal pain, nausea, vomiting, diarrhea SKIN: Denies rash or itching. MUSCULOSKELETAL: Denies myalgia. NEUROLOGIC: Denies headache. All systems reviewed & are unremarkable except as noted in HPI and below PMFSH Past Medical History Medical History Cardiomyopathy Colon cancer screening COVID-01 January 2021, November 2021 GERD (gastroesophageal reflux disease) High blood pressure High cholesterol Irritable bowel syndrome with diarrhea Obesity JASSON (obstructive sleep apnea) Seizure Family History Family History Father Heart disease Acute myocardial infarction Hypertension Mother Heart disease Acute myocardial infarction Hypertension Social History Social History Smoking status: Never smoker Alcohol intake: current Alcohol use details: rare social Substance use: never Living arrangements: with family Additional occupation/education comments: Gender identity (if verbalized by the patient): Male Comments At time of signature, agree with nursing past medical, surgical, social and family history. There is no relevant family history pertinent to the presenting complaint Exam Narrative: GENERAL: Well-appearing, well-nourished, and in no acute distress. HEAD: Normocephalic EYES: PERRLA, conjunctivae clear ENT: Nares clear. Mucous membranes moist. TM pearly aldridge with sharp light reflex bilaterally; no EAC abnormality or drainage, no tragal tenderness. Oropharynx not erythematous without lesions. Tonsils not enlarged and without exudate, no drooling, no hoarseness, no trismus, uvula midline. NECK: Supple. No lymphadenopathy CHEST: Clear to auscultation, breath sounds equal. No wheezing, rhonchi, rales, or stridor. No respiratory distress, speaks in full sentences. HEART: Regular rate and rhythm. No murmur heard. SKIN: Warm, dry, no rash. NEURO: Alert and oriented x3. PSYCH: Normal mood and affect Course Course Emerg
[2023-02-17 11:16] VITALS: BP 133/81; PULSE 65; RESP 16; TEMP 36.4; O2SAT 99
== END 2023-02-17 11:49 | disposition home or self-care (01) ==
PROVIDERS: Emergency Provider Nurse Practitioner
DX: H66.90 Otitis media, unspecified, unspecified ear (principal); Z79.1 Long term (current) use of non-steroidal anti-inflammatories (NSAID)
CPT/HCPCS: 99213; G0463

== ENCOUNTER 2023-02-27 16:03 | Outpatient (CLI) | payer OTHER, SELFPAY ==
[2023-03-01 23:56] LABS: H pylori, Urea Breath NOT DETECTED (NOT DETECTED)
== END 2023-02-27 16:04 | disposition home or self-care (01) ==
LOC: ANHLAB 16:04
PROVIDERS: Visit Provider Nurse Practitioner
DX: K29.70 Gastritis, unspecified, without bleeding (principal); B96.81 Helicobacter pylori [H. pylori] as the cause of diseases classified elsewhere
CPT/HCPCS: 83013

== ENCOUNTER 2023-08-05 10:28 | Emergency (ER) | payer OTHER, SELFPAY ==
--- NOTE | 2023-08-05 10:30 | ED.BACK ---
HPI - Back Pain/Injury General Chief Complaint: Back Pain/Injury Stated Complaint: Lower Back Pain Time Seen by Provider: 08/05/23 10:30 Source: patient Mode of arrival: ambulatory Limitations: no limitations History of Present Illness HPI Narrative: Sage is a 47-year-old male patient presenting to the clinic today with complaints of low back pain x3 weeks. He reports no known injury however he was moving boxes 3 weeks ago as he often does and developed pain afterwards. He is reporting pain to the right lower back. Pain is worse with attempting to lay down and attempting to get up. He denies any pain going down his leg. Denies any saddle anesthesia or loss of bowel or bladder. Related Data Home Medications Medication Instructions Recorded Confirmed carvedilol 25 mg tablet 25 mg PO DAILY 12/10/20 08/05/23 simvastatin 40 mg tablet 40 mg PO BID 12/10/20 08/05/23 losartan 50 mg tablet 50 mg PO DAILY 07/12/21 08/05/23 sertraline 25 mg tablet (Zoloft) 25 mg PO DAILY 07/05/22 08/05/23 gabapentin 600 mg tablet 600 mg PO DAILY 10/11/22 08/05/23 Allergies Allergy/AdvReac Type Severity Reaction Status Date / Time No Known Allergies Allergy Verified 08/05/23 10:59 Review of Systems Review of Systems: Pertinent positives per HPI. Patient denies any fever, chills, rash, headache, visual changes, dizziness, cough, runny nose, sore throat, shortness of breath, chest pain, palpitations, nausea, vomiting, diarrhea, constipation, abdominal pain, or any urinary issues. PMF Past Medical History Medical History Cardiomyopathy Colon cancer screening COVID-01 January 2021, November 2021 Gastric intestinal metaplasia GERD (gastroesophageal reflux disease) GERD without esophagitis Helicobacter pylori gastritis High blood pressure High cholesterol Irritable bowel syndrome with diarrhea Irritable bowel syndrome with diarrhea Obesity Obesity (BMI 30-39.9) JASSON (obstructive sleep apnea) Personal history of colonic polyps Seizure Family History Family History Father Heart disease Acute myocardial infarction Hypertension Mother Heart disease Acute myocardial infarction Hypertension Social History Social History (Reviewed 08/05/23 @ 10:30 by RL Becerra Smoking status: Never smoker Alcohol intake: current Alcohol use details: rare social Substance use: never Living arrangements: with family Additional occupation/education comments: Gender identity (if verbalized by the patient): Male Comments At the time of my signature, I reviewed and agree with the nursing past medical, surgical, social, and family history. There is no relevant family history pertinent to the patient complaint. Exam Narrative: General: Well-developed, well nourished, in no apparent distress Head: Normocephalic, atraumatic. Cardio: Regular rate and rhythm, s1 and s2 normal, no murmur appreciated. Resp: Clear to auscultation bilaterally, no rhonchi, rales, wheezing or rubs. Musculoskeletal: No deformity, non-tender to palpation over the spine or the paraspinous musculature, pain to the right lower back musculature with flexion and extension of the low back, grossly normal range of motion, muscle strength strong and equal, peripheral pulse strong, patellar reflexes 2+ bilaterally, no edema, no cyanosis, normal gait and station Course Course Emergency Course: Portions of this record may have been created with voice recognition software. Level of Care: Express Care Visit Vital Signs Vital signs: Vital signs reviewed MDM - Back Pain/Injury MDM Narrative Medical decision making narrative: At the time of visit patient is resting comfortably on the exam table. Patient currently rating pain 5/10. I suspect patient has a right-sided low back strain. Will send in prescription for Me
[2023-08-05 11:19] VITALS: BP 128/100; PULSE 67; RESP 16; TEMP 36.6; O2SAT 98
== END 2023-08-05 11:18 | disposition home or self-care (01) ==
PROVIDERS: Emergency Provider Nurse Practitioner Family
DX: S39.012A Strain of muscle, fascia and tendon of lower back, initial encounter (principal); X50.3XXA Overexertion from repetitive movements, initial encounter; I42.9 Cardiomyopathy, unspecified; K21.9 Gastro-esophageal reflux disease without esophagitis; I10 Essential (primary) hypertension; E78.00 Pure hypercholesterolemia, unspecified; E66.9 Obesity, unspecified; Z68.30 Body mass index [BMI] 30.0-30.9, adult; G40.909 Epilepsy, unspecified, not intractable, without status epilepticus; Z86.16 Personal history of COVID-19
CPT/HCPCS: 99213; G0463

== ENCOUNTER 2024-05-05 07:29 | Emergency (ER) | payer OTHER, SELFPAY ==
[2024-05-05] VITALS (10 sets, daily range): BP systolic 135–141; BP diastolic 81–87; PULSE 70–83; RESP 16–22; TEMP 37; O2SAT 95–97
--- NOTE | ~2024-05-05 | XR_ITS ---
EXAMINATION: XR chest 1V portable DATE: 05/05/2024 08:42 INDICATION: Cough and fever TECHNIQUE: frontal view of the chest was obtained. COMPARISON: Chest radiograph dated 05/14/2014 FINDINGS: The lungs remain clear with no focal airspace opacities, pulmonary edema, pleural effusion or pneumot horax. The cardiomediastinal silhouette is normal. Visualized bones and soft tissues are unremarkable . IMPRESSION: 1. No acute cardiopulmonary disease. Reviewed, dictated and finalized at location A.
[2024-05-05 08:51] LABS: Influenza A QL RT-PCR Negative (Negative); Influenza B QL RT-PCR Negative (Negative); RSV RNA, RT-PCR Negative (Negative); SARS-CoV-2 RNA PCR Negative (Negative)
--- NOTE | 2024-05-05 09:06 | ED.GENADULT ---
HPI - General Adult General Chief complaint: Upper Respiratory Infection Stated complaint: sinus infection Time Seen by Provider: 05/05/24 07:47 History of Present Illness HPI narrative: 48-year-old male presenting to the emergency department for evaluation persisting cough headache ear pain body aches and fatigue that has been ongoing since last week. Patient has been taking [id number] medications without significant improvement. Patient feels that his symptoms are worsening. Patient is not a smoker does not vape. Related Data Home Medications Medication Instructions Recorded Confirmed carvedilol 25 mg tablet 25 mg PO DAILY 12/10/20 08/05/23 simvastatin 40 mg tablet 40 mg PO BID 12/10/20 08/05/23 losartan 50 mg tablet 50 mg PO DAILY 07/12/21 08/05/23 sertraline 25 mg tablet (Zoloft) 25 mg PO DAILY 07/05/22 08/05/23 gabapentin 600 mg tablet 600 mg PO DAILY 10/11/22 08/05/23 Allergies Allergy/AdvReac Type Severity Reaction Status Date / Time No Known Allergies Allergy Verified 05/05/24 07:29 Review of Systems Review of Systems: All systems reviewed & are unremarkable except as noted in HPI and below PMFSH Past Medical History Medical History Cardiomyopathy Colon cancer screening COVID-01 January 2021, November 2021 Gastric intestinal metaplasia GERD (gastroesophageal reflux disease) GERD without esophagitis Helicobacter pylori gastritis High blood pressure High cholesterol Irritable bowel syndrome with diarrhea Irritable bowel syndrome with diarrhea Obesity Obesity (BMI 30-39.9) JASSON (obstructive sleep apnea) Personal history of colonic polyps Seizure Family History Family History Father Heart disease Acute myocardial infarction Hypertension Mother Heart disease Acute myocardial infarction Hypertension Social History Social History Smoking status: Never smoker Alcohol intake: current Alcohol use details: rare social Substance use: never Living arrangements: with family Additional occupation/education comments: Gender identity (if verbalized by the patient): Male Exam Narrative: APPEARANCE: Well appearing, no pain, no distress, well-nourished. HEAD: normocephalic, atraumatic. EYES: PERRLA/EOMI, conjunctivae clear. NOSE: Normal no drainage EARS:TMS clear with good light reflex. THROAT: Pharynx clear, no exudate. NECK: Supple. No adenopathy, no masses. RESPIRATORY: Nonproductive cough CARDIOVASCULAR: Regular rate and rhythm without murmurs rubs or gallops. ABDOMINAL: Soft, nontender, nondistended, normal bowel sounds MUSCULOSKELETAL: Moves all extremities. Strength/ROM intact, No edema, No calf tenderness. NEURO: Alert. Cranial nerves II through XII intact. Grossly intact SKIN: Warm, dry. Normal Color Course Course Emergency Course: Patient was updated on the results of his workup patient was comfortable with the plan for discharge and follow-up. Vital Signs Vital signs: Vital Signs Temperature 98.6 F 05/05/24 07:52 Pulse Rate 73 05/05/24 07:52 Respiratory Rate 19 05/05/24 07:52 Blood Pressure 141/84 H 05/05/24 07:52 Pulse Oximetry 97 05/05/24 07:52 Oxygen Delivery Room Air 05/05/24 07:52 Temperature 98.6 F 05/05/24 07:52 Pulse Rate 76 05/05/24 09:15 Respiratory Rate 18 05/05/24 09:15 Blood Pressure 138/87 05/05/24 08:31 Pulse Oximetry 95 05/05/24 09:15 Oxygen Delivery Room Air 05/05/24 07:58 Medical Decision Making [facility] Narrative Medical decision making narrative: 48-year-old male present to the emergency department for evaluation for grade 1 week of cough congestion ear pain body aches fatigue. Patient was treated for possible superinfection. Patient was started on his throw and Augmentin. Patient was provided an a
[2024-05-05] MEDS: BENZONATATE 100 MG CAPSULE 200 MG PO (09:17)
[2024-05-05] MEDS: AMOXICILLIN/CLAVULANATE K 875-125 MG TAB 1 TABLET PO (09:17)
[2024-05-05] MEDS: AZITHROMYCIN 250 MG TABLET 500 MG PO (09:17)
== END 2024-05-05 09:25 | disposition home or self-care (01) ==
PROVIDERS: Emergency Provider Emergency Medicine
DX: J18.9 Pneumonia, unspecified organism (principal); H92.01 Otalgia, right ear; R52 Pain, unspecified; I42.9 Cardiomyopathy, unspecified; I10 Essential (primary) hypertension; E78.00 Pure hypercholesterolemia, unspecified; E66.9 Obesity, unspecified; Z68.32 Body mass index [BMI] 32.0-32.9, adult; G47.33 Obstructive sleep apnea (adult) (pediatric); K21.9 Gastro-esophageal reflux disease without esophagitis; K58.0 Irritable bowel syndrome with diarrhea; Z86.16 Personal history of COVID-19; Z86.010 Personal history of colon polyps; Z79.899 Other long term (current) drug therapy
CPT/HCPCS: 71045; 87637; 94664; 99283; A9270